=== PATIENT | female | born 1980 | race African-American/Black ===

== ENCOUNTER 2017-03-02 16:57 | Emergency (ER) | payer MEDICAID ==
[~2017-03-02] VITALS: Ht 172.7 cm; Wt 77.1 kg
--- NOTE | 2017-03-02 18:07 | [facility]gent Treatment Center Report ---
History of Present Issue Date/Time Seen by Provider 03/02/17 1805 Visit Reason Pt arrived:Walked Presenting Problem:PT C/O BUMPS ON THE INSISDE OF HER EARS THAT SHE SQUEEZED AND HAD SOME DRAINAGE, CONCERNED THEY MAY BE INFECTED Location if Accident: Onset of symptoms date/time:/ or onset unknown for:MEDICAL HX UNKNOWN Have you (or family members/close friends) recently traveled outside the [place]? N If Yes, where/when: Have you had exposure to infectious disease within the past month? TB? Other? Specify: Presents with c/o sore to bilateral ears R>L and a bump behind the right ear that started approximately 1 week ago. Patient has been cleaning sores with watera and hydrogen peroxide but states that it has not improved. Simliar episode occurred ealier this month. Denies fever/chills. Source patient Exam Limitations no limitations ALLERGIES Coded Allergies: Penicillins (11/26/15) acetaminophen (From DARVOCET-N) (I-RASH 11/26/15) amoxicillin (NAUSEA, RASH 11/26/15) codeine (NAUSEA, RASH 11/26/15) gabapentin (11/26/15) ibuprofen (I-RASH 11/26/15) ketorolac (I-HIVES 11/26/15) naproxen (I-HIVES 11/26/15) propoxyphene (From DARVOCET-N) (I-RASH 11/26/15) tramadol (I-HIVES 11/26/15) Home Medications Active Scripts LISINOPRIL/HYDROCHLOROTHIAZIDE (Lisinopril-Hctz 10-12.5 MG Tab) 1 TAB PO DAILY #14 TAB Prov: 11/26/15 Reported Medications LISINOPRIL/HYDROCHLOROTHIAZIDE (Lisinopril-Hctz 10-12.5 MG Tab) 1 TAB PO DAILY Fluoxetine Hcl (Prozac) 20 MG PO DAILY Amlodipine Besylate (Amlodipine) 10 MG PO DAILY History Medical History General CAD? No Angina: No LA: No Hypertension? Yes Hyperlipidemia? Yes CHF? No DVT? No PE? No COPD? No Asthma? No Anemia? No GERD? No Gastric ulcers? No GI Bleed? No Hernia? No Thyroid Problems? No Hypothyroidism? No CVA? No Seizures? No Diabetes? No Renal Insuffiency? No UTI? No Stones? No GB Disease: Yes Nephritic Syndrome? No Asplenia? No Hepatitis? No Sickle Cell Disease? No Arthritis? Yes Migraines? Yes Cataracts? No Glaucoma? No MRSA? No HIV? No TB? No Anxiety? Yes Depression? Yes Cancer? No Immunization HX DT/Tetanus 10/29/11 Flu THISFLUSEA Pneumonia Received In Past Surgical Hx Previous Surgery?Y [place] TEETH EXTRACTION Tubal Ligation RIGHT FALLOPIAN TUBE PARTIAL HYSTERECTOMY Family History Family HX Diabetes Yes CAD Yes Hypertension Yes Hyperlipidemia No Cancer Yes TB No Social History Smoking Hx Smoker: Current Every Day Smoker Tobacco: Yes Type Cigarettes Packs/day < 1 Pack Alcohol Alcohol: No Review of Systems All Other Systems Reviewed and Negative Constitutional denies chills, denies fever ENT ear pain (external), ear discharge (external). Skin lesions (bilateral ears) Physical Exam Vital Signs Vital Signs Date Time Temp Pulse Resp B/P Pulse O2 O2 Flow FiO2 Ox Delivery Rate 03/02 1728 98.2 85 14 195/80 98 General Appearance normal appearance, WD/WN, no apparent distress Respiratory Status Yes: chest symmetrical. No: respiratory distress. Lung Sounds bilateral: normal breath sounds. Cardiovascular regular rate/rhythm, no peripheral edema, no murmur Neurologic alert, oriented x 3 Skin normal color, warm/dry, lesions (bilateral ears R>L), bilateral ear lesions with scabs noted; moderately erythematous and mildly edematous; no drainage noted at this time Lymphatic right posterior auricular adenopathy Medical Decision Making LABS/Meds/Orders Pt receiving controlled substance in ED? No Comment Discussed medication allergies with patient at visit. Patient states that she has never had an allergic reaction to cephalosporin and discussed potential adverse effects. Patient verbalizes understanding. Departure Departure Time of Disposition 1820 Disposition DC Home or Self Care(routine) Clinical Impression Primary Impression: Skin infection Condition STABLE Referrals Kristine Varner Patient Instructions DI for Wound Infection Additional Instructions Keep wound clean and dry. Clean wound as discussed at visit. If symptoms persist or worsen follow-up with primary care provider. Patient verbalizes understanding. Discharge Counseling Counseled pt/family regarding diagnosis, medications/RX, home care, follow up needs Prescriptions Current Visit Scripts CEPHALEXIN (Keflex 500MG Capsule) 500 MG PO QID #20 CAP at 1828
[2017-03-02 18:29] VITALS: BP 172/70
--- OUTSIDE RECORDS SUMMARY | 2017-03-12 23:20 | External Medical Summary Rpt | CCD ---
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 [facility] LUMBOSACR IMAGING AL ASS MINIMUM 4 VIEWS RADIOLOGI 33265 [place] NEGRITA C EXAM 2 [facility] SACROIL[place] IMAGING C JOINTS ASS 3/MORE VIEWS BASIC 31969 [facility] METABOLIC 2 [facility] [place] [address] [facility] ABDOMEN & 2 [facility] PELVIS INC INC W/O CONTRAST MATERIAL THERAPEUT 10869 [facility] IC 2 [facility] INJECTION INC INC IV PUSH EACH NEW DRUG URNLS DIP 54251 [facility] 2 [facility] STICK/TAB INC INC LET REAGENT AUTO MICROSCOP Y BLOOD 18041 [facility] COUNT 2 [facility] COMPLETE INC INC AUTO&AUTO DIFRNTL WBC 3D 38443 [facility] RENDERING 2 [facility] INC INC W/INTERP& POSTPROC DIFF WORK STATION THER 58452 [facility] PROPH/DX 2 [facility] NJX IV INC INC PUSH SINGLE/1S T SBST/DRUG CULTURE 62702 [facility] BACTERIAL 2 [facility] INC INC QUANTTATI [place] [address] PATHOLOGY ARNOLD VAN SURG 2 & PATHOLOGY CYTOLOGY LAB GROSS&ESTIVEN ROSCOPIC EXAM ANESTHESI 15787 [facility] 2 ANESTH ANESTH INTRAPERI OF THE OF THE TONEAL BLUE BLUE LOWER ABD W/LAPS NOS LAPAROSCO 71095 [facility] PY W/RMVL 2 [facility] ADNEXAL INC INC STRUCTURE S BLOOD 00349 [facility] COUNT 2 [facility] COMPLETE INC INC AUTO&AUTO DIFRNTL WBC GONADOTRO 15693 [facility] PIN 2 [facility] CHORIONIC INC INC QUALITATI VE BASIC 11802 [facility] METABOLIC 2 [facility] PANEL INC INC CALCIUM TOTAL LOCM Q9967 [facility] 300-399 2 [facility] MG/ML INC INC IODINE CONCENTRA TION PER ML HYSTEROSA 53400 [facility] LPINGOGRA 2 [facility] PHY RS&I INC INC CATH & 32491 [facility] T[facility] SALINE/CO 2 DONNELL DONNELL NTRAST SONOHYSTE R/HYSTERO SALPI URINE 49528 [facility] 1 [facility] TEST INC INC VISUAL COLOR CMPRSN METHS 3D 49612 [facility] RENDERING 1 [facility] W/INTERP INC INC & [place] 3D 06304 [facility] RENDERING 1 [facility] INC INC W/INTERP& POSTPROC DIFF WORK STATION URNLS DIP 47518 [facility] 1 [facility] STICK/TAB INC [place] [address] [facility] ABDOMEN & 1 [facility] PELVIS INC INC W/O CONTRAST MATERIAL SIMPLE 65206 WEHRMAN WEHRMAN REPAIR 1 III KARINA III KARINA F/E/E/N/L /M 2.5CM/< [place] [address] [facility] HEAD/BRAI 1 [facility] N W/O INC INC CONTRAST MATERIAL HYSTEROSA 43755 [facility] LPINGOGRA 1 [facility] PHY RS&I INC INC CATH & 44070 [facility] SALINE/CO 1 [facility] NTRAST [facility]IN[facility] OF SONOHYSTE ADÁN R/HYSTERO SALPI 3D 87386 [facility] RENDERING 1 [facility] W/INTERP INC INC & [place] [address] [facility] HEAD/BRAI 1 [facility] N W/O INC INC CONTRAST MATERIAL URINE 68993 [facility] 1 [facility] TEST CLINIC OF VISUAL ADÁN COLOR CMPRSN METHS PERM IMPL A4264 [facility] T[facility] 1 [facility] CONTRACEP CLINIC OF TIVE ADÁN TUBAL OCCL DEV & DEL SYS HYSTEROSC 81750 [facility] T[facility] OPY BI 1 [facility] TUBE CLINIC OF OCCLUSION ADÁN W/PERM IMPLNTS 3D 28503 [facility] RENDERING 1 [facility] INC INC W/INTERP& [place] [address] [facility] MAXILLOFA 1 [facility] CIAL W/[place] [address] [facility] HEAD/BRAI 1 [facility] N W/O INC INC CONTRAST MATERIAL 3D 19773 [facility] RENDERING 1 [facility] W/INTERP INC INC & POSTPROCE SS SUPERVISI ON REMOVAL 40132 [facility] T[facility] INTRAUTER 1 [facility] OF DEVICE ADÁN IUD CYTP C/V 60275 PATHOLOGY PATHOLOGY AUTO THIN 1 & & LYR CYTOLOGY CYTOLOGY PREPJ SCR LAB LAB MNL RESCR PHYS SUSCEPTIB 01083 [facility] LTY STDY 1 [facility] ANTIMICRB INC INC IAL MICRO/AGA R DILUTJ CULTURE 07365 CRUZTYREL [facility] BCT 1 [facility] ISOL&PRSM INC INC PTV ID ISOLATE EA URINE FIBRIN 25370 [facility] DGRADJ 1 [facility] PRODUCTS INC INC D-DIMER QUAL/SEMI JOSE PROTHROMB 49340 [facility] IN TIME 1 [facility] [place] [address] [facility] STREPTOCO 1 [facility] [place] [address] [facility] AMYLASE 1 [facility] [place] [address] JAKE REES ANGIOGRAP 1 [facility] HY CHEST IMAGING W/CONTRAS ASS T/NONCONT RAST THROMBOPL 26784 [facility] ASTIN 1 [facility] TIME INC INC PARTIAL PLASMA/WH OLE BLOOD BLOOD 76521 [facility] COUNT 1 [facility] COMPLETE INC INC AUTO&AUTO DIFRNTL WBC URINE 85272 [facility] 1 [facility] TEST INC INC VISUAL COLOR CMPRSN METHS CULTURE 53607 [facility] BACTERIAL 1 [facility] INC INC QUANTTAT[place] [address] [facility] LIPASE 1 [facility] INC INC BASIC 23902 [facility] METABOLIC 1 [facility] PANEL INC INC CALCIUM TOTAL HEPATIC 69877 [facility] FUNCTION 1 [facility] PANEL INC INC URNLS DIP 93144 [facility] 1 [facility] STICK/TAB INC INC LET REAGENT AUTO MICROSCOP Y RADIOLOGI 90892 JAKE REES C EXAM 1 [facility] CHEST 2 IMAGING VIEWS ASS FRONTAL&L ATERAL NAIL 86.23 David REMOVAL Sokan MD Encounters Encounter Start End Date Code Location Performer Type Date OFFICE 77974 [facility] OUTPATIEN 7 7 PHYSICIAN T VISIT S GROUP 15 MINUTES HOSPITAL [facility] - 6 6 [facility] OUTPATIEN INC T EMERGENCY 10059 YAW MARSHALL 6 6 PHYSICIAN ESTIVEN DEPARTMEN S, PLL[facility] T VISIT HIGH/URGE NT SEVERITY OFFICE 81746 RADHA GARCIA OUTPATIEN 3 3 ABDOUL ABDOUL T VISIT 15 MINUTES Emergency MARIA ANTONIA Sanderson MD (ER) 3 16:46 3 17:40 [facility] EMERGENCY 71720 RIKKI MACHADO 3 3 EMERGENCY DEPARTMEN SERVICES T VISIT MODERATE SEVERITY OFFICE 99605 JADEN SINGLETONTIESHAKanu OUTPATIEN 3 3 JR KARINA JR KARINA T VISIT 15 MINUTES Emergency MARIA ANTONIA Sanedrson MD (ER) 3 10:58 3 11:49 [facility] EMERGENCY 08165 RIKKI MACHADO 3 3 EMERGENCY DEPARTMEN SERVICES T VISIT MODERATE SEVERITY EMERGENCY 42843 CRU[facility] 3 3 [facility] DEPARTMEN INC T VISIT LOW/MODER SEVERITY HOSPITAL CRUZ - 3 3 [facility] OUTPATIEN INC T PERIODIC 34098 [facility] T[facility] PREVENTIV 3 3 DONNELL DONNELL E MED EST PATIENT 18-39 YRS Emergency MARIA ANTONIA Sanderson MD (ER) 3 12:20 3 14:11 [facility] EMERGENCY 56408 RIKKI MACHADO DEPT 3 3 EMERGENCY VISIT SERVICES HIGH SEVERITY& THREAT FUNCJ Emergency MARIA ANTONIA Marshall MD (ER) 3 15:38 3 16:09 [facility] EMERGENCY 35363 CRUZ 3 3 [facility] DEPARTMEN INC T VISIT LOW/MODER SEVERITY EMERGENCY 23600 ISAMAR MARSHALL 3 3 [facility] DEPARTMEN T VISIT HIGH/URGE NT SEVERITY HOSPITAL CRUZ - 3 3 [facility] OUTPATIEN INC T HOSPITAL CRUZ - 3 3 [facility] OUTPATIEN INC T EMERGENCY 26591 ANITA HOWARD DEPT 3 3 III KARINA III KARINA VISIT HIGH SEVERITY& THREAT FUN EMERGENCY 71193 CRUZ 3 3 [facility] DEPARTMEN INC T VISIT HIGH/URGE NT SEVERITY OFFICE 57032 RADHA GARCIA OUTPATIEN 2 2 ABDOUL ABDOUL T VISIT 15 MINUTES HOSPITAL [facility]Z - 2 2 [facility] OUTPATIEN INC T OFFICE 71353 RADHA RADHA OUTPATIEN 2 2 ABDOUL ABDOUL T VISIT 15 MINUTES OFFICE 15101 ITZEL ROBBINS OUTPATIEN 2 2 NAN NAN T VISIT 10 MINUTES OFFICE 96233 ITZEL ROBBINS OUTPATIEN 2 2 NAN NAN T VISIT 15 MINUTES EMERGENCY 73584 CRUZ 2 2 [facility] DEPARTMEN INC T VISIT MODERATE SEVERITY EMERGENCY 77071 RIKKI MO DEPT 2 2 EMERGENCY VISIT SERVICES HIGH SEVERITY& THREAT [facility] CRUZ - 2 2 [facility] INC [facility] CRUZ - 2 2 [facility] OUTPATIEN INC T EMERGENCY 13921 CRU[facility] 2 2 [facility] DEPARTMEN INC T VISIT LOW/MODER SEVERITY EMERGENCY 09767 ISAMAR MARSHALL 2 2 [facility] DEPARTMEN T VISIT HIGH/URGE NT SEVERITY HOSPITAL CRUZ - 2 2 [facility] OUTPATIEN INC HOSPITAL CRUZ - 2 2 [facility] OUTPATIEN INC T EMERGENCY 21792 ANITA HOWARD 2 2 III KARINA III [facility] DEPARTMEN T VISIT MODERATE SEVERITY HOSPITAL CRUZ - 2 2 [facility] OUTPATIEN INC T EMERGENCY 04972 TRAY T TRAY T DEPT 2 2 VISIT HIGH SEVERITY& THREAT [facility] CRUZ - 2 2 [facility] OUTPATIEN INC T OFFICE 01914 V[facility] TALAMANTES OUTPATIEN 2 2 DONNELL DONNELL T VISIT 15 MINUTES OFFICE 94224 VINITA TALAMANTES OUTPATIEN 2 2 DONNELL DONNELL T VISIT 15 MINUTES OFFICE 82124 LINO HUYNH CODIE OUTPATIEN 2 2 T NEW 20 MINUTES EMERGENCY 53767 RIKKI MARSHALL 2 2 EMERGENCY [facility] DEPARTMEN SERVICES T VISIT HIGH/URGE NT SEVERITY HOSPITAL CRUZ - 2 2 [facility] OUTPATIEN INC T EMERGENCY 44836 CRUZ 2 2 [facility] DEPARTMEN INC T VISIT LOW/MODER SEVERITY OFFICE 22314 VINITA TALAMANTES OUTPATIEN 2 2 DONNELL DONNELL T VISIT 15 MINUTES EMERGENCY 68552 CRUZ 2 2 [facility] DEPARTMEN INC T VISIT LOW/MODER SEVERITY HOSPITAL [facility] - 2 2 [facility] OUTPATIEN INC T EMERGENCY 32498 RIKKI MARSHALL 2 2 EMERGENCY [facility] DEPARTMEN SERVICES T VISIT HIGH/URGE NT SEVERITY HOSPITAL CRUZ - 2 2 [facility] OUTPATIEN INC T EMERGENCY 15032 CRUZ 2 2 [facility] DEPARTMEN INC T VISIT HIGH/URGE NT SEVERITY HOSPITAL CRUZ - 2 2 [facility] OUTPATIEN INC T HOSPITAL CRUZ - 2 2 [facility] OUTPATIEN INC T OFFICE 07647 ROZ COURTNEY OUTPATIEN 2 2 ANTOLIN ANTOLIN T NEW 30 MINUTES OFFICE 23955 VINITA TALAMANTES OUTPATIEN 2 2 DONNELL DONNELL T VISIT 15 MINUTES HOSPITAL CRUZ - 2 2 [facility] OUTPATIEN INC T EMERGENCY 53538 KAN EDNA KAN EDNA 2 2 DEPARTMEN T VISIT HIGH/URGE NT SEVERITY EMERGENCY 51028 CRUZ 2 2 [facility] DEPARTMEN INC T VISIT LOW/MODER SEVERITY HOSPITAL CRUZ - 2 2 [facility] OUTPATIEN INC T EMERGENCY 77171 ANITA VELASQUEZMAHENDRA DEPT 1 1 III KARINA III KARINA VISIT HIGH SEVERITY& THREAT [facility] CRUZ - 1 1 [facility] OUTPATIEN INC T EMERGENCY 38934 [facility]ATE SE[facility]ITY [facility] - 1 1 [facility] OUTPATIEN INC T EMERGENCY 41162 RIKKI SIMS DEPT 1 1 EMERGENCY ESTHER VISIT SERVICES HIGH SEVERITY& THREAT [facility] CRUZ - 1 1 [facility] OUTPATIEN INC T EMERGENCY 25243 CRUZ 1 1 [facility] L[facility]MODER SE[facility]ITY [facility] CRUZ - 1 1 [facility] OUTPATIEN INC T EMERGENCY 41671 [facility] VIS[facility] LOW/MODER SEVERITY EMERGENCY 82728 RIKKI MARSHALL 1 1 EMERGENCY [facility] SERVICES T VISIT HIGH/URGE NT SEVERITY HOSPITAL CRUZ - 1 1 [facility] OUTPATIEN INC T OFFICE 45759 Rebecca LANG 1 1 АЛЕКСАНДР MCCOY T VISIT [facility] 15 MINUTES EMERGENCY 14794 CRUZ 1 1 [facility] T VISIT LIMITED/M INOR PROB EMERGENCY 59098 RIKKI HOWARD 1 1 EMERGENCY III [facility] T VISIT HIGH/URGE NT SEVERITY HOSPITAL CRUZ - 1 1 [facility] OUTPATIEN [facility] T EMERGENCY 18132 CRUZ 1 1 [facility] T VISIT LOW/MODER SEVERITY EMERGENCY 40259 RIKKI KAN EDNA DEPT 1 1 EMERGENCY VISIT SERVICES HIGH SEVERITY& THREAT [facility] CRUZ - 1 1 [facility] T INITIAL 91923 WOMEN'S TALAMANTES PREVENTIV 1 1 [facility] AGE 18-39YRS OFFICE 41859 A Karrie LANG 1 1 АЛЕКСАНДР MCCOY T VISIT PSC 15 MINUTES OFFICE 39151 Rebecca Fernandez OUTPATIJASMIN 1 1 АЛЕКСАНДР MCCOY T VISIT PSC 25 MINUTES EMERGENCY 87064 RIKKI BISHOP DEPT 1 1 EMERGENCY VISIT SERVICES HIGH SEVERITY& THREAT [facility] CRUZ - 1 1 [facility] OUTPATIEN INC T EMERGENCY 37037 CRUZ 1 1 [facility] T VISIT HIGH/URGE NT SEVERITY
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
--- OUTSIDE RECORDS SUMMARY | 2017-03-12 23:23 | External Medical Summary Rpt | CCD ---
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 - 1 1 [facility]IEN [facility] HOSPITAL CRUZ - 1 1 [facility] OUTPATIEN [facility] EMERGENCY 65634 CRUZ 1 1 [facility] DEPARTMEN INC T VISIT LOW/MODER SEVERITY EMERGENCY 59434 RIKKI SIMS DEPT 1 1 EMERGENCY ESTHER VISIT SERVICES HIGH SEVERITY& THREAT FUNCJ EMERGENCY 13426 RIKKI PENN 1 1 EMERGENCY [facility] SERVICES T VISIT HIGH/URGE NT SEVERITY HOSPITAL CRUZ - 1 1 [facility] OUTPATIEN INC T EMERGENCY 62335 CRUZ 1 1 [facility] [place] VISIT LOW[facility]MODER SEVERITY HOSPITAL CRUZ - 1 1 [facility] OUTPATIEN [facility] T OFFICE 98824 A Karrie LANG 1 1 АЛЕКСАНДР MCCOY T VISIT PSC 15 MINUTES HOSPITAL CRUZ - 1 1 [facility] 20463 RIKKI HOWARD 1 1 EMERGENCY III [facility] SERVICES T VISIT HIGH/URGE NT SEVERITY EMERGENCY 47832 CRUZ 1 1 [facility] [place] VISIT LIMITED/M INOR PROB EMERGENCY 59130 CRUZ 1 1 [facility] [place] VISIT LOW/MODER SEVERITY EMERGENCY 79071 RIKKI BISHOP DEPT 1 1 EMERGENCY VISIT SERVICES HIGH SEVERITY& THREAT FUNJ HOSPITAL CRUZ - 1 1 [facility] INITIAL 71262 WOMEN'S TALAMANTES PREVENTIV 1 1 [facility] ADÁN NEW PT AGE [id number] OFFICE 10659 A Karrie LANG 1 1 АЛЕКСАНДР MCCOY T VISIT PSC 15 MINUTES OFFICE 83938 Rebecca LANG 1 1 АЛЕКСАНДР MCCOY T VISIT PSC 25 MINUTES EMERGENCY [address] CRUZ [address] [facility] H[facility]URGE NT SEVERITY HOSPITAL CRUZ - 1 1 [facility] INC T EMERGENCY 40249 RIKKI BISHOP DEPT 1 1 EMERGENCY VISIT SERVICES HIGH SEVERITY& THREAT FUNCJ
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
--- OUTSIDE RECORDS SUMMARY | 2017-03-12 23:24 | External Medical Summary Rpt | CCD ---
Demographics Preferred Language [place]an Marital Status Unknown Faith Affiliation Unknown Race Unknown Ethnic Group Unknown Author Author , JESSIKA ROSEN Address Unknown Phone Immunization Unable to retrieve immunization data due to connection failure with Immunization Registry. Please try again later.
--- OUTSIDE RECORDS SUMMARY | 2017-03-12 23:24 | External Medical Summary Rpt | CCD ---
Demographics Preferred Language Moldovan Marital Status Unknown Latter-Day Affiliation Unknown Race Unknown Ethnic Group Unknown Author Author , JESSIKA ROSEN Address Unknown Phone Immunization Unable to retrieve immunization data due to connection failure with Immunization Registry. Please try again later.
--- OUTSIDE RECORDS SUMMARY | 2017-03-12 23:24 | External Medical Summary Rpt ---
Author Author JESSIKA Production, JESSIKA Production Organization [employer] Address Unknown Phone Unavailable Results [facility]MO B[facility]AT DIAGNOSTIC 89038 Observa Value Referen Units Interpr Notes Date tion ce etation Range MAMMO No No No No Jun 15 BILAT informa informa informa informa 2016 DIAGNOS tion in tion in tion in tion in 9:47 AM TIC source source source source [address] CRITTEN data data data data [address] [address] RADIOLO GY REPORT Patient name:VAUGHN BERG MRN:[id number] Birthda te: [birth year] Sex: F Acct Num:[id number] Phone: Stay type: Admit Phy:ELL EN HEDGEKamilla Date of Exam: 016 Locatio n: Family Phy: OTHER,O UT OF Reason for Exam: TEST REASON: PAIN- NODULE Procedu re: [id number] AMMO BILAT DIAGNOS TIC ____ Unsi gned transcr iptions represe nt a prelimi nary report and do not reflect correct ions, additio ns, and/or subtrac tions to the informa tion contain ed in this report. BILATER AL SCREENI NG MAMMOGR AMS, BASELIN E EXAM FINDING S: Standar d view mammogr aphy is perform ed. The breasts are compose d of areas of fibrogl andular densiti es and fatty tissue distrib uted in a symmetr ical pattern . There are no suspici ous masses, calcifi cations or areas of archite ctural distort ion. IMPRESS ION: 1. No radiogr aphic evidenc e of maligna ncy. 2. Recomme nd follow- up per [place] [employer] screeni ng guideli gaurav. 3. If there is a focal area of palpabl e abnorma lity follow up of that region could be benefic ial. BI-RADS Categor y-1-Neg ative. Categor y 1 - Negativ e Categor y 2 Benign Categor y 3 Probabl y benign Categor y 4 Suspici ous Categor y 5 Highly Suggest rosaura of maligna ncy Categor y 0 Incompl ete: Need Additio nal Imaging Evaluat ion HYACINTH/storm DD: Jun 15 2015 10:11AM /DT: Jun 15 2015 12:25PM Michel Mello MD Electro kaity Signatu re Jun 19 2015 12:17PM
--- OUTSIDE RECORDS SUMMARY | 2017-03-12 23:24 | External Medical Summary Rpt ---
Author Author JESSIKA Production, JESSIKA Production Organization [employer] Address Unknown Phone Unavailable Results MAMMO BILAT DIAGNOSTIC 74006 Observa Value Referen Units Interpr Notes Date tion ce etation Range MAMMO No No No No Jun 15 BILAT informa informa informa informa 2016 DIAGNOS tion in tion in tion in tion in 9:47 AM TIC source source source source [id number] CRITTEN data data data data [address] [address] RADIOLO GY REPORT Patient name:VAUGHN BERG MRN:[id number] Birthda te: [birth year] Sex: F Acct Num:[id number] Phone: Stay type: Admit Phy:ELL EN HEDGEKamilla Date of Exam: 016 Locatio n: Family Phy: OTHER,O UT OF Reason for Exam: TEST REASON: PAIN- NODULE Procedu re: [id number] AMMO BILAT DIAGNOS TIC ____ Unsi gned [...]
== END 2017-03-02 18:29 | disposition home or self-care (01) ==
LOC: UTC 16:57
DX: H60.393 Other infective otitis externa, bilateral (principal); Z88.0 Allergy status to penicillin; Z88.1 Allergy status to other antibiotic agents; Z88.6 Allergy status to analgesic agent; I10 Essential (primary) hypertension; E78.5 Hyperlipidemia, unspecified; F41.8 Other specified anxiety disorders; F17.210 Nicotine dependence, cigarettes, uncomplicated